=== PATIENT | male | born 1980 | race Caucasian/White ===

== ENCOUNTER 2019-02-04 11:42 | Emergency (ER) | payer OTHER ==
[~2019-02-04] VITALS: Ht 165.1 cm; Wt 73.0 kg
[2019-02-04] MEDS ORDERED: MOBIC15 MG PO (12:40)
[2019-02-04 13:00] VITALS: BP 127/83
== END 2019-02-04 13:10 | disposition home or self-care (01) ==
LOC: ER 11:42
DX: R51 Headache (principal)